=== PATIENT | female | born 1975 | race Caucasian/White ===

== ENCOUNTER 2018-04-24 11:23 | Emergency (ER) | payer OTHER ==
[2018-04-24 11:48] LABS: ABSOLUTE LYMPHOCYTES (AUTO) 0.7 10^3/uL (0.5-4.7); ABSOLUTE MONOCYTES (AUTO) 0.1 10^3/uL (0.1-1.4); ABSOLUTE NEUT (AUTO) 4.9 10^3/uL (1.7-8.2); BASOPHILS % (AUTO) 0.1 % (0-2); HEMATOCRIT 34.5 % (36.0-47.0); LYMPHOCYTES % (AUTO) 11.7 % (13-45); MEAN CORPUSCULAR HEMOGLOBIN 31.2 pg (27.0-33.4); MEAN CORPUSCULAR HGB CONC 34.9 g/dL (32.0-36.0); MEAN CORPUSCULAR VOLUME 90 fl (80-97); MONOCYTES % (AUTO) 2.3 % (3-13); PLATELET COUNT 270 10^3/uL (150-450); RED BLOOD COUNT 3.86 10^6/uL (3.72-5.28); RED CELL DISTRIBUTION WIDTH 12.4 % (11.5-14.0); SEGMENTED NEUTROPHILS % (AUTO) 85.9 % (42-78); TOTAL CELLS COUNTED % (AUTO) 100 %; WHITE BLOOD COUNT 5.7 10^3/uL (4.0-10.5)
[2018-04-24 12:07] LABS: ALANINE AMINOTRANSFERASE 24 U/L (9-52); ALBUMIN 3.9 g/dL (3.5-5.0); ALKALINE PHOSPHATASE 56 U/L (38-126); ANION GAP 8 (5-19); ASPARTATE AMINO TRANSFERASE 26 U/L (14-36); BILIRUBIN,DIRECT 0.2 mg/dL (0.0-0.4); BILIRUBIN,TOTAL 0.2 mg/dL (0.2-1.3); BLOOD UREA NITROGEN 13 mg/dL (7-20); CALCIUM 9.6 mg/dL (8.4-10.2); CARBON DIOXIDE 24 mmol/L (22-30); CHLORIDE 105 mmol/L (98-107); GLUCOSE 123 mg/dL (75-110); POTASSIUM 4.4 mmol/L (3.6-5.0); SODIUM 137.2 mmol/L (137-145); TOTAL PROTEIN 6.2 g/dL (6.3-8.2)
[2018-04-24 12:08] LABS: ALCOHOL < 10 mg/dL (NONE DETECTED)
[2018-04-24] MEDS ORDERED: PHENYTOIN SODIUM INJ/PF 250 MG/5 ML SDV IV ONE (12:39)
[2018-04-24] MEDS ORDERED: ONDANSETRON HCL INJ/PF 4 MG/2 ML SDV IV ONE (13:20)
[2018-04-24] MEDS ORDERED: PROMETHAZINE HCL 25 MG TABLET PO ONE (13:21)
[2018-04-24] MEDS ORDERED: HYDROCODONE/ACETAMINOPHEN 7.5-325 MG TABLET PO ONE (13:22)
[2018-04-24 13:26] LABS: APPEARANCE,URINE CLEAR; BILIRUBIN,URINE NEGATIVE (NEGATIVE); COLOR,URINE STRAW; GLUCOSE, URINE NEGATIVE (NEGATIVE); KETONES,URINE NEGATIVE (NEGATIVE); LEUKOCYTE ESTERASE,URINE NEGATIVE (NEGATIVE); NITRITE,URINE NEGATIVE (NEGATIVE); PROTEIN,URINE NEGATIVE (NEGATIVE); URINE SPECIFIC GRAVITY 1.004; UROBILINOGEN,URINE NEGATIVE mg/dL (<2.0)
[2018-04-24] MEDS ORDERED: HYDROCODONE/ACETAMINOPHEN 10-325 MG TABLET PO ONE (13:48)
[2018-04-24 13:58] LABS: URINE AMPHETAMINES SCREEN NEGATIVE; URINE BARBITURATES SCREEN NEGATIVE; URINE BENZODIAZEPINES SCREEN UNCONFIRMED POSITIVE; URINE COCAINE SCREEN NEGATIVE; URINE MARIJUANA (THC) SCREEN NEGATIVE; URINE METHADONE SCREEN NEGATIVE; URINE PHENCYCLIDINE SCREEN NEGATIVE
--- NOTE | 2018-04-24 14:31 | RADIOLOGY REPORT (SQ) ---
EXAM DESCRIPTION: CT HEAD WITHOUT COMPLETED DATE/TIME: 04/24/2018 2:24 pm REASON FOR STUDY: Seizures?? COMPARISON: None. TECHNIQUE: Axial images acquired through the brain without intravenous contrast. Images reviewed wi th bone, brain and subdural windows. Additional sagittal and coronal reconstructions were generated. Images stored on PACS. All CT scanners at this facility use dose modulation, iterative reconstruction, and/or weight based d osing when appropriate to reduce radiation dose to as low as reasonably achievable (ALARA). [facility]: Dose Right [facility]: CareDose [facility]: Dose Right [facility]: Teradose 4D [facility]: Smart [place] RADIATION DOSE: CT Rad equipment meets quality standard of care and radiation dose reduction techniq ues were employed. CTDIvol: 53.2 mGy. DLP: 1070 mGy-cm. mGy. LIMITATIONS: None. FINDINGS: VENTRICLES: Normal size and contour. CEREBRUM: No masses. No hemorrhage. No midline shift. No evidence for acute infarction. Normal gra y/white matter differentiation. No areas of low density in the white matter. CEREBELLUM: No masses. No hemorrhage. No alteration of density. No evidence for acute infarction. EXTRAAXIAL SPACES: No fluid collections. No masses. ORBITS AND GLOBE: No intra- or extraconal masses. Normal contour of globe without masses. CALVARIUM: No fracture. PARANASAL SINUSES: Status post bilateral maxillary antrostomy. SOFT TISSUES: No mass or hematoma. OTHER: No other significant finding. IMPRESSION: NO ACUTE INTRACRANIAL IMAGING FINDINGS. EVIDENCE OF ACUTE STROKE: NO. COMMENT: Quality ID # [id number]: Final reports with documentation of one or more dose reduction techniques (e.g., Automated exposure control, adjustment of the mA and/or kV according to patient size, use of iterative reconstruction technique) TECHNICAL DOCUMENTATION: JOB ID: [id number] [employer]- All Rights Reserved Reading location - IP/workstation name: [email or web address]
--- NOTE | 2018-04-24 15:32 | ER Document Report ---
ED Seizure - General Chief Complaint: Seizure Stated Complaint: POSSIBLE SEIZURE Time Seen by Provider: 04/24/18 12:13 Notes: Patient is here for seizures. She never had seizures before, but she has had about 4 seizures over the last 3 months she has not seen a physician about the seizures yet. She goes to see Dr. Johnson, a local neurologist, for migraine headaches, last visit about a months ago. But he has not seen her mor worked her up for seizures. Today, she is here with her fianc, sister, and former . I am told that the patient has had 9 seizures today. She has not been incontinent of stool or urine was any of these episodes. She is also not chewed her tongue. Her family describe her as being weak and unable to form any common activities. She has basically become helpless. Does not work. Patient went to see a holistic physician in [place] a couple of days ago. She was given testosterone. Patient was diagnosed with thyroid cancer and had a thyroidectomy followed by iodine radiation pill and some injection last September 2017, and was supposed to go back to follow-up at the end of March, but has not done so yet. Current medications include gabapentin, Cymbalta, and amphetamine. She has migraine headaches for which she takes 2 [place] 10 mg pills at one time. - Related Data Allergies/Adverse Reactions: prochlorperazine edisylate [From Compazine] Adverse Reaction (Verified 04/24/18 11:59) prochlorperazine maleate [From Compazine] Adverse Reaction (Verified 04/24/18 11:59) Past Medical History - Social History Smoking Status: Unknown if Ever Smoked Family History: Reviewed & Not Pertinent Patient has suicidal ideation: No Patient has homicidal ideation: No Psychiatric Medical History: Reports: Hx Depression Past Surgical History: Reports: Hx Thyroid Surgery, Other - Thyroidectomy - Immunizations Hx Diphtheria, Pertussis, Tetanus Vaccination: Yes Review of Systems - Review of Systems Notes: REVIEW OF SYSTEMS: CONSTITUTIONAL : Denies fever. EENT: Denies eye, ear, nose or mouth or throat pain or other symptoms. CARDIOVASCULAR: Denies chest pain. RESPIRATORY: Denies cough, chest congestion, or shortness of breath. GASTROINTESTINAL: Nauseated and vomiting, but very little true emesis and mostly appears to be saliva produced. Denies abdominal pain vomiting, or diarrhea. GENITOURINARY: Denies difficulty or painful urinating, urinary frequency, blood in urine. MUSCULOSKELETAL: Denies back or neck pain. Denies joint pain or swelling. SKIN: Denies rash or skin lesions. NEUROLOGICAL: Denies LOC or altered mental status. Complains of pounding headache. Denies sensory loss or motor deficits. ALL OTHER SYSTEMS REVIEWED AND NEGATIVE. Physical Exam - Vital signs Vitals: Resp BP Pulse Ox 19 133/84 H 97 04/24/18 11:41 04/24/18 11:41 04/24/18 11:41 Interpretation: Normal Notes: PHYSICAL EXAMINATION: GENERAL: Well-appearing, in no acute distress. Laying on the stretcher. Fianc is at bedside. Patient's sister is also here. Former also has arrived and is at bedside. HEAD: Atraumatic, normocephalic. EYES: Pupils equal round and reactive to light, extraocular movements intact. ENT: oropharynx clear without exudates. Moist mucous membranes. No damage or injury to her tongue or any of the intraoral tissues. NECK: Normal range of motion, supple. LUNGS: Breath sounds clear and equal bilaterally. HEART: Regular rate and rhythm without murmurs. ABDOMEN: Soft, nontender. No guarding or rebound. No masses. BACK: No tenderness throughout entire back. EXTREMITIES: Normal range of motion without pain. NEUROLOGICAL: Normal speech. Normal sensory, motor, and reflex exams. Awake, alert, and oriented x3. PSYCH: Normal mood, normal affect. SKIN: Warm, dry, no rashes. Course - Re-evaluation Re-evalutation: 04/24/18 19:36 While I was in the examining room initially, patient had an episode where she seemed to jerk and twitch all 4 extremities. Not a very vigorous tonic-clonic action like I am accustomed to seeing true seizures. This episode lasted perhaps 30 seconds. I did try to sprinkle some water in the patient's face to see if it might interrupt her, but I did not put very much and I do not think it it was a good test of her seizure activity. Once her jerking stopped, she does not have any postictal phase, just one sighing respiration. No tongue biting and no incontinence. 04/24/18 19:39 I was able to reach Dr. Johnson by telephone and we discussed the case. He remembers the patient although he is not taking care of her for her episodes that are being called seizures. He said he would be happy to see her but she will need to be referred by her primary care, Dr. Hernandez. Dr. Gee did suggest that I could put the patient on Dilantin if I wish to give her an anticonvulsant as it would be the least likely to cause problems and interpreting studies that she is EEGs, etc. I did give the patient a loading dose of 10 mg/kg for her 70 kg or about 750 mg of IV Dilantin. Patient stopped having any more of these episodes. Says she began to feel better after I gave her [place] 20 mg and Phenergan p.o. She was advised to see her primary care provider and arrange to get in to see a neurologist for further workup soon. - Vital Signs Vital signs: Temp Pulse Resp BP Pulse Ox 98.8 F 15 92/57 L 89 L 04/24/18 11:43 04/24/18 15:21 04/24/18 15:21 04/24/18 15:21 - Laboratory Result Diagrams: 04/24/18 11:30 04/24/18 11:30 Laboratory results interpreted by me: 04/24/18 04/24/18 11:30 11:30 Hct 34.5 L Seg Neutrophils % 85.9 H Lymphocytes % 11.7 L Monocytes % 2.3 L Glucose 123 H Total Protein 6.2 L - Diagnostic Test Radiology reviewed: Image reviewed, Reports reviewed - CT of the head is normal. Discharge - Discharge Clinical Impression: New onset seizure, Migraine headache Condition: Stable Disposition: HOME, SELF-CARE Additional Instructions: Seizure You have had a seizure. Seizure disorders (epilepsy) of one sort or another affect about one out of 50 people. The seizure occurs because of abnormal electrical activity in the brain. Seizures may be due to drugs and alcohol, strokes, brain injury, or infection. In the most common form of epilepsy, no cause can be found. You will require further evaluation to determine the cause of your seizure, and to determine whether anti-seizure medication is required. This follow-up testing is important, so please call us if you encounter problems with scheduling of tests or appointments. YOU SHOULD NOT DRIVE until released to do so by your physician. The law requires that seizures be reported to the [place] driver's license bureau--a seizure while driving could be catastrophic. Call the doctor if seizures recur, or if you develop new symptoms such as fever, severe headache, stiff neck, confusion or increasing sleepiness, weakness or numbness, or visual problems. NORMAL EXAM AND WORKUP: At this time, your examination and workup show no significant abnormality. No significant abnormal physical findings were noted. All laboratory, EKG, and imaging (x-ray, CT scans, ultrasound) studies that were ordered show no significant abnormality. Although your examination and all studies that were ordered showed no significant abnormal finding, there are no examinations and no studies that are 100% accurate. There is always the possibility that some abnormality could exist and not be detected with physical examination or within the limits and capabilities of laboratory and other studies. You should return or follow up as you were instructed on your visit today for further evaluation if your symptoms do not resolve. Dilantin Dilantin is used to prevent seizures. It causes very few side effects and is not addicting. We usually get blood tests to monitor the level of Dilantin in your blood. Most patients take Dilantin as a single daily dose. When first starting the medicine, you may want to divide it into three doses daily to prevent drowsiness or other side effects. Unless a large "loading dose" is given, it may take about a week to reach the full anti seizure effect of Dilantin. Many medicines can change the amount of Dilantin in your blood stream. Don't add any new drug without discussing it with your doctor. Alcohol can affect your blood Dilantin level. "Binge" drinking is particularly dangerous. The amount of a phenytoin dose that goes into your blood varies among different brands. If you change to a different brand of phenytoin, you should notify your doctor. If you become while taking Dilantin, continue the medicine. Contact your physician. A seizure can be dangerous for your baby -- much more dangerous than anti seizure drugs. We don't recommend breast feeding while using Dilantin. Phenytoin can cause enlargement of the gums. Good dental hygiene (brushing, flossing, regular dental checkups) usually prevents this. Call the doctor if you develop skin rash, sores in the mouth, unexplained blisters, swollen gums, or any other new symptom while taking Dilantin. FOLLOW-UP CARE: If you have been referred to a physician for follow-up care, call the physicians office for an appointment as you were instructed or within the next two days. If you experience worsening or a significant change in your symptoms, notify the physician immediately or return to the Emergency Department at any time for re-evaluation. Call Dr. Graham office tomorrow morning to arrange for you to be referred to a neurologist for further workup. He will need studies such as an EEG, etc. Prescriptions: Phenytoin Sodium Extended [Dilantin 100 mg Capsule.er] 300 mg PO QHS #90 capsule Referrals: IRAJ HERNANDEZ MD [ACTIVE STAFF] - Follow up tomorrow
[2018-04-24 16:20] VITALS: BP 92/57
== END 2018-04-24 17:00 | disposition home or self-care (01) ==
LOC: ER 11:23
DX: R56.9 Unspecified convulsions (principal); G43.909 Migraine, unspecified, not intractable, without status migrainosus; R11.2 Nausea with vomiting, unspecified; E89.0 Postprocedural hypothyroidism; F32.9 Major depressive disorder, single episode, unspecified; Z79.899 Other long term (current) drug therapy; Z85.850 Personal history of malignant neoplasm of thyroid; Z92.3 Personal history of irradiation
CPT/HCPCS: 99285; 51702; 96375; 96365; 96366; 36415; 80307 ×2; 83735; 84703; 85025; 80053; 81001; 70450; J1165; J2405

== ENCOUNTER → 2018-12-04 | Outpatient (CLI) | payer OTHER ==
[2018-12-04 08:47] LABS: HEMATOCRIT 37.8 % (36.0-47.0); HEMOGLOBIN 12.6 g/dL (12.0-15.5); MEAN CORPUSCULAR HEMOGLOBIN 29.4 pg (27.0-33.4); MEAN CORPUSCULAR HGB CONC 33.5 g/dL (32.0-36.0); MEAN CORPUSCULAR VOLUME 88 fl (80-97); PLATELET COUNT 289 10^3/uL (150-450); RED CELL DISTRIBUTION WIDTH 13.5 % (11.5-14.0); WHITE BLOOD COUNT 6.5 10^3/uL (4.0-10.5)
[2018-12-04 09:18] LABS: ALBUMIN 4.5 g/dL (3.5-5.0); ALKALINE PHOSPHATASE 63 U/L (38-126); ASPARTATE AMINO TRANSFERASE 32 U/L (14-36); BILIRUBIN,DIRECT 0.3 mg/dL (0.0-0.4); BILIRUBIN,TOTAL 0.5 mg/dL (0.2-1.3); TOTAL PROTEIN 6.9 g/dL (6.3-8.2)
[2018-12-04 09:32] LABS: FREE T4 (FREE THYROXINE) 0.16 ng/dL (0.78-2.19)
[2018-12-04 09:46] LABS: THYROID STIMULATING HORMONE 51.6 uIU/mL (0.47-4.68)
[2018-12-04 15:27] LABS: ANION GAP 9 (5-19); BLOOD UREA NITROGEN 16 mg/dL (7-20); CALCIUM 10.1 mg/dL (8.4-10.2); CARBON DIOXIDE 29 mmol/L (22-30); CHLORIDE 99 mmol/L (98-107); GLUCOSE 70 mg/dL (75-110); POTASSIUM 3.9 mmol/L (3.6-5.0)
[2018-12-05 07:38] LABS: T3 UPTAKE (RESIN) 17 % (24-39)
[2018-12-05 10:26] LABS: THYROID PEROXIDASE (TPO) AB 10 IU/mL (0-34)
== END ==
LOC: OD 07:46
PROVIDERS: ATTEND Obstetrics & Gynecology
DX: R53.83 Other fatigue (principal); E78.5 Hyperlipidemia, unspecified; E03.9 Hypothyroidism, unspecified; Z79.899 Other long term (current) drug therapy; Z85.850 Personal history of malignant neoplasm of thyroid
CPT/HCPCS: 36415; 80053; 84439; 84443; 84479; 85027; 86376

== ENCOUNTER → 2019-02-07 | Outpatient (CLI) | payer OTHER ==
--- NOTE | 2019-02-10 17:07 | RADIOLOGY REPORT (SQ) ---
EXAM DESCRIPTION: NM WHOLE BODY BONE SCAN COMPLETED DATE/TIME: 02/07/2019 11:58 am REASON FOR STUDY: SHOULDER PAIN (M25.519), S/P THYROID CA (Z85.850) M25.519 PAIN IN UNSPECIFIED ELLEN ULDER Z85.850 PERSONAL HISTORY OF MALIGNANT NEOPLASM OF THYROID COMPARISON: Outside images RADIONUCLIDE AND DOSE: 20 millicuries Tc99m HDP. The route of agent administration: Intravenous. ADDITIONAL DRUGS AND DOSES: None. TECHNIQUE: Routine delayed images at 3 hours post radionuclide injection acquired of the bony skelet on including anterior and posterior whole-body projections and additional focused images as needed. LIMITATIONS: None. FINDINGS: BONES: Normal visualization without areas of photopenia or increased bony uptake of radiop harmaceutical. KIDNEYS: Symmetric excretion without obstruction. OTHER: No other significant finding. IMPRESSION: NORMAL BONE SCAN. COMMENT: Quality measure 147: Current bone scan is compared with any available plain radiographs, p rior bone scans, and CT/MRI. TECHNICAL DOCUMENTATION: JOB ID: [id number] [employer]- All Rights Reserved Reading location - IP/workstation name: [email or web address]
== END ==
LOC: RAD 08:17
PROVIDERS: ATTEND Obstetrics & Gynecology
DX: M25.519 Pain in unspecified shoulder (principal); Z85.850 Personal history of malignant neoplasm of thyroid
CPT/HCPCS: 78306; A9561; Q9969